=== PATIENT | female | born 1965 | race Caucasian/White ===

== ENCOUNTER 2020-10-06 21:49 | Observation (INO) | payer MEDICAID ==
[2020-10-06] MEDS ORDERED: Ondansetron 4 MG/2 ML SDV IVPUSH ONE (22:57)
[2020-10-06] MEDS ORDERED: Sodium Chloride 0.9% 1,000 ML IV ONE (22:58)
[2020-10-06] MEDS ORDERED: Ketorolac 30 MG/ML SDV IVPUSH ONE (23:20)
[2020-10-06] MEDS ORDERED: HYDROmorphone 1 MG/ML Syringe IVPUSH ONE (23:20)
[2020-10-06] MEDS ORDERED: Metoprolol Tartrate 5 MG in Sodium Chloride 0.9% 50 ML IV ONE (23:22)
[2020-10-06] MEDS ORDERED: Pantoprazole 40 MG Vial IVPUSH ONE (23:24)
[2020-10-07] MEDS ORDERED: HYDROmorphone 1 MG/ML Syringe IVPUSH ONE ×2 (00:19→02:40)
[2020-10-07] MEDS ORDERED: Sodium Chloride 0.9% 1,000 ML IV ONE (01:07)
[2020-10-07 02:38] LABS: CORONAVIRUS COVID-19 NAA NEGATIVE (NEGATIVE)
[2020-10-07] MEDS ORDERED: Enoxaparin 40 MG/0.4 ML Syringe SUBCUT ONE (03:12)
[2020-10-07] MEDS ORDERED: Ondansetron 8 MG in Sodium Chloride 0.9% 50 ML IV PRN (03:19)
[2020-10-07] MEDS: Sodium Chloride 0.9% 1,000 ML IV SCH ×2 (04:03→18:48)
[2020-10-07] MEDS: HYDROmorphone 1 MG/ML Syringe IVPUSH PRN ×3 (04:04→18:58)
[2020-10-07] MEDS ORDERED: Ondansetron 4 MG/2 ML SDV IVPUSH ONE (07:58)
[2020-10-07] MEDS: Enoxaparin 40 MG/0.4 ML Syringe SUBCUT SCH (08:01)
--- NOTE | 2020-10-07 09:11 | CT ---
CT abdomen and pelvis Technique: Multiple axial sections were obtained from above the dome of the diaphragm inferiorly through the pubic symphysis. Intravenous contrast was utilized. No oral contrast has been given. Delayed images were obtained to the bladder. Reconstructed coronal and sagittal images were obtained. Comparison: No prior abdominal imaging is available. Findings: Visualized lung bases show nothing acute. Gallbladder shows a small hiatal hernia. Liver shows low density most likely representing diffuse fatty infiltration. Surgical clips are seen from prior cholecystectomy. Spleen size is normal. Adrenal glands show no nodule. Pancreas shows no discrete abnormality. Abdominal aorta shows no aneurysm. No retroperitoneal adenopathy or mesenteric abnormalities are seen. Kidneys show symmetric contrast enhancement with no hydronephrosis or mass. Appendix is seen which is normal. No pelvic mass or adenopathy is seen. Scattered diverticuli are seen within the sigmoid and descending colon with no findings of diverticulitis. Small nodule is noted within the left breast measuring approximately 1.0 cm. This does not appear to be completely cystic. Delayed images show a small amount of contrast within the ureters as well as bladder. Bone window settings were reviewed which show severe disc space narrowing at L5-S1 with vacuum phenomena. Degenerative apophyseal change is also seen at L5-S1. Lesser degenerative change is seen within other portions of the spine. Impression: 1. Small 1.0 cm nodule within the lateral left breast. This was not described on preliminary report by [facility] and lateral left breast ultrasound is recommended. 2. Other findings as noted above believed to be chronic nonacute. Diagnostic code #3 I mostly agree with preliminary report from [facility] (please see above), finalized on 10/07/20, 2:27 AM CDT
[2020-10-07 10:09] LABS: HEMOGLOBIN A1C 7.6 %
--- NOTE | 2020-10-07 10:14 | MR ---
MRI abdomen Technique: Various sequences were obtained without IV contrast. Study was obtained in both axial and coronal planes. Comparison: Prior CT abdomen and pelvis study performed earlier on the same date. Findings: CHD measures about 1.3 cm and CBD measures about 1.0 cm. Ducts are seen to their exit into the duodenum. No filling defects are seen to indicate retained stones. Prior cholecystectomy is seen which is likely the cause of the biliary duct dilatation. On the cholangiogram images there is a cystic area being seen close to the CHD which represents fluid within the duodenum. Liver contains no focal abnormality. Spleen size is normal. Kidneys appear within normal limits. Adrenal glands show no abnormality. There is a small cyst being seen within the tail of the pancreas which measures about 8 mm. Pancreas is otherwise within normal limits. Abdominal aorta shows no aneurysm. No retroperitoneal adenopathy is seen. No mesenteric abnormalities are appreciated. Impression: 1. CHD and CBD are mildly dilated most likely residual from prior cholecystectomy. No filling defects are seen to indicate retained stone. 2. Small 8 mm cyst is seen within the tail of the pancreas. Given the patient's age, this finding is most likely benign although recommend limited T2 haste axial sequence in 6 months to confirm stability. 3. No additional abnormality is identified on MRI study of the abdomen. Diagnostic code #3
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
[2020-10-07] MEDS ORDERED: Promethazine 12.5 MG in Sodium Chloride 0.9% 50 ML IV ONE (11:35)
[2020-10-07] MEDS ORDERED: Insulin Lispro 100 UNIT/ML 10 ML Vial SUBCUT SCH (13:00)
--- NOTE | 2020-10-07 13:49 | PCM.PREANE ---
Preanesthetic Assessment - Procedure Proposed Procedure: diag egd - Anesthesia/Transfusion/Family Hx Anesthesia History: Prior Anesthesia Reaction Type of Anesthesia Reaction: Other (see below) (heart flutter- low on iron) Other Type of Anesthesia Reaction Comment: heart flutter Family History of Anesthesia Reaction: No Transfusion History: No Prior Transfusion(s) - Review of Systems General: Weakness (muscles- fibromyalgi) Pulmonary: No Symptoms, Cough (after walks a while) Cardiovascular: Dyspnea on Exertion Gastrointestinal: Abdominal Pain (48 hours), Diarrhea, Nausea, Vomiting Neurological: Headache (migraines), Weakness Other: Reports: Diabetes, Liver Problems (fatty), Neck Pain, Depression, Anxiety - Physical Assessment NPO Status Date: 10/06/20 NPO Status Time: 18:00 Vital Signs: Last Vital Signs Temp 98.2 F 10/07/20 08:00 Pulse 103 H 10/07/20 08:00 Resp 14 10/07/20 08:00 BP 126/93 H 10/07/20 08:00 Pulse Ox 92 L 10/07/20 08:00 Height: 5 ft 6 in Weight: 91.58 kg ASA Class: 2E Mental Status: Alert & Oriented x3 Airway Class: Mallampati = 1 Dentition: Reports: Edentulous Thyro-Mental Finger Breadths: 3 Mouth Opening Finger Breadths: 3 ROM/Head Extension: Full Lungs: Clear to Auscultation, Normal Respiratory Effort Cardiovascular: Regular Rate, Regular Rhythm - Lab Values: Laboratory Last Values WBC 7.03 K/mm3 (3.98-10.04) 10/07/20 06:15 RBC 4.15 M/mm3 (3.98-5.22) 10/07/20 06:15 Hgb 12.6 gm/dl (11.2-15.7) D 10/07/20 06:15 Hct 38.5 % (34.1-44.9) 10/07/20 06:15 MCV 92.8 fl (79.4-94.8) 10/07/20 06:15 MCH 30.4 pg (25.6-32.2) 10/07/20 06:15 MCHC 32.7 g/dl (32.2-35.5) 10/07/20 06:15 RDW Std Deviation 44.2 fL (36.4-46.3) 10/07/20 06:15 Plt Count 388 K/mm3 (182-369) H D 10/07/20 06:15 MPV 9.3 fl (9.4-12.3) L 10/07/20 06:15 Neut % (Auto) 53.1 % (34.0-71.1) 10/07/20 06:15 Lymph % (Auto) 35.8 % (19.3-51.7) 10/07/20 06:15 [place] % (Auto) 9.2 % (4.7-12.5) 10/07/20 06:15 Eos % (Auto) 1.0 (0.7-5.8) 10/07/20 06:15 Baso % (Auto) 0.6 % (0.1-1.2) 10/07/20 06:15 Neut # (Auto) 3.73 K/mm3 (1.56-6.13) 10/07/20 06:15 Lymph # (Auto) 2.52 K/mm3 (1.18-3.74) 10/07/20 06:15 [place] # (Auto) 0.65 K/mm3 (0.24-0.36) H 10/07/20 06:15 Eos # (Auto) 0.07 K/mm3 (0.04-0.36) 10/07/20 06:15 Baso # (Auto) 0.04 K/mm3 (0.01-0.08) 10/07/20 06:15 Manual Slide Review Abnormal smear 10/06/20 22:05 Sodium 145 mEq/L (136-145) 10/07/20 06:15 Potassium 4.2 mEq/L (3.5-5.1) 10/07/20 06:15 Chloride 109 mEq/L (98-107) H 10/07/20 06:15 Carbon Dioxide 28 mEq/L (21-32) 10/07/20 06:15 Anion Gap 12.2 (5-15) 10/07/20 06:15 BUN 12 mg/dL (7-18) 10/07/20 06:15 Creatinine 0.9 mg/dL (0.55-1.02) 10/07/20 06:15 Est Cr Clr Drug Dosing 66.12 mL/min 10/07/20 06:15 Estimated GFR (MDRD) > 60 mL/min (>60) 10/07/20 06:15 BUN/Creatinine Ratio 13.3 (14-18) L 10/07/20 06:15 Glucose 177 mg/dL (70-99) H 10/07/20 06:15 POC Glucose 170 mg/dL (70-99) H 10/07/20 11:21 Hemoglobin A1c 7.6 % (-5.6) H 10/07/20 09:10 Lactic Acid 1.8 mmol/L (0.4-2.0) 10/07/20 02:30 Calcium 8.7 mg/dL (8.5-10.1) 10/07/20 06:15 Total Bilirubin 0.5 mg/dL (0.2-1.0) 10/07/20 06:15 AST 46 U/L (15-37) H 10/07/20 06:15 ALT 78 U/L (14-59) H 10/07/20 06:15 Alkaline Phosphatase 70 U/L (46-116) 10/07/20 06:15 C-Reactive Protein 0.6 mg/dL (<1.0) 10/07/20 06:15 Total Protein 6.6 g/dl (6.4-8.2) 10/07/20 06:15 Albumin 3.4 g/dl (3.4-5.0) 10/07/20 06:15 Globulin 3.2 gm/dL 10/07/20 06:15 Albumin/Globulin Ratio 1.1 (1-2) 10/07/20 06:15 Amylase 16 U/L (25-115) L 10/07/20 06:15 Lipase 61 U/L (73-393) L 10/07/20 06:15 Urine Color Yellow (Yellow) 10/07/20 01:00 Urine Appearance Clear (Clear) 10/07/20 01:00 Urine pH 5.5 (5.0-8.0) 10/07/20 01:00 Ur Specific [place] > or = 1.030 (1.005-1.030) 10/07/20 01:00 Urine Protein 2+ (Negative) H 10/07/20 01:00 Urine Glucose (UA) 2+ (Negative) H 10/07/20 01:00 Urine Ketones 2+ (Negative) H 10/07/20 01:00 Urine Occult Blood Negative (Negative) 10/07/20 01:00 Urine Nitrite Negative (Negative) 10/07/20 01:00 Urine Bilirubin 1+ (Negative) H 10/07/20 01:00 Urine Urobilinogen 0.2 (0.2-1.0) 10/07/20 01:00 Ur Leukocyte Esterase Negative (Negative) 10/07/20 01:00 Ketones 0.05 mM (0.0-0.3) 10/07/20 09:08 Influenza Type A RNA Negative (NEGATIVE) 10/07/20 01:11 Influenza Type B RNA Negative (NEGATIVE) 10/07/20 01:11 SARS-CoV-2 RNA (BRETT) Negative (NEGATIVE) 10/07/20 01:11 - Allergies Allergies/Adverse Reactions: Allergies Allergy/AdvReac Type Severity Reaction Status Date / Time ciprofloxacin [From Cipro] Allergy Severe Other Verified 10/06/20 22:09 gluten Allergy Severe Blisters Verified 10/07/20 03:27 latex Allergy Severe Blisters Verified 10/06/20 22:09 miconazole [From Monistat 7] Allergy Severe Rash Verified 10/06/20 22:09 oats Allergy Intermediate Blisters Verified 10/07/20 03:27 - Blood Blood Available: No - Anesthesia Plan Beta Shahab: Metoprolol Med Last Dose Date: 10/05/20 - Acknowledgements Anesthesia Type Planned: MAC Pt an Appropriate Candidate for the Planned Anesthesia: Yes Alternatives and Risks of Anesthesia Discussed w Pt/Guardian: Yes Pt/Guardian Understands and Agrees with Anesthesia Plan: Yes PreAnesthesia Questionnaire HEENT History: Reports: Impaired Vision Cardiovascular History: Reports: Hypertension Other Respiratory History: pt states she did sleep apnea study and they never for sure stated that she had sleep apnea but states that her o2 does "drop a little when she sleeps" Gastrointestinal History: Reports: Celiac Disease, Diverticulosis, Fatty Liver, GERD, Irritable Bowel Syndrome, Other (See Below). Denies: Bowel Obstruction, GI Bleed, Pancreatitis Other Gastrointestinal History: spastic colon [employer] History: Reports: Musculoskeletal History: Reports: Back Pain, Chronic, Fibromyalgia, Osteoarthritis, Other (See Below) Other Musculoskeletal History: neuropathy in feet Neurological History: Reports: Migraines, Vertigo Psychiatric History: Reports: Depression, Mood Swings Endocrine/Metabolic History: Reports: Diabetes, Type II, Obesity/BMI 30+ Hematologic History: Reports: None - Infectious Disease History Infectious Disease History: Reports: Chicken Pox, Measles, Mumps, Shingles - Past Surgical History HEENT Surgical History: Reports: Oral Surgery Other HEENT Surgeries/Procedures: upper/lower dentures Cardiovascular Surgical History: Reports: None GI Surgical History: Reports: Cholecystectomy Female Surgical History: Reports: Tubal Ligation Endocrine Surgical History: Reports: None Musculoskeletal Surgical History: Reports: None - SUBSTANCE USE Tobacco Use Status *Q: Never Tobacco User Tobacco Use Within Last Twelve Months: No Second Hand Smoke Exposure: Yes Days Per Week of Alcohol Use: 0 Recreational Drug Use History: No - HOME MEDS Home Medications: Home Meds DULoxetine [Cymbalta] 60 mg PO BID 10/06/20 [History] Dicyclomine [Bentyl] 20 mg PO QIDACANDBED PRN 10/06/20 [History] Metoprolol Succinate 25 mg PO BEDTIME 10/06/20 [History] Ondansetron [Zofran] 4 mg PO Q4H PRN 10/06/20 [History] buPROPion [buPROPion XL] 150 mg PO BID 10/06/20 [History] metFORMIN [Glucophage] 500 mg PO BIDMEALS 10/06/20 [History] Acetaminophen 1,000 mg PO QID PRN 10/07/20 [History] diphenhydrAMINE HCL [Diphenhydramine HCl] 25 mg PO DAILY PRN 10/07/20 [History] traMADol HCl [Tramadol HCl] 50 mg PO BID PRN 10/07/20 [History] - CURRENT (IN HOUSE) MEDS Current Meds: Current Medications Enoxaparin Sodium (Enoxaparin 40 Mg/0.4 Ml Syringe) 40 mg SUBCUT DAILY [facility] Last Admin: 10/07/20 08:01 Dose: 40 mg Documented by: Hydromorphone HCl (Hydromorphone 1 Mg/Ml Syringe) 1 mg IVPUSH Q1H PRN PRN Reason: Pain Last Admin: 10/07/20 07:48 Dose: 1 mg Documented by: Sodium Chloride (Normal Saline) 1,000 mls @ 75 mls/hr IV ASDIRECTED UNIUQE Last Admin: 10/07/20 04:03 Dose: 75 mls/hr Documented by: Ondansetron HCl 8 mg/ Sodium (Chloride) 54 mls @ 100 mls/hr IV Q8HR PRN PRN Reason: Nausea/Vomiting Promethazine HCl 12.5 mg/ (Sodium Chloride) 50.5 mls @ 100 mls/hr IV Q12H PRN PRN Reason: Nausea/Vomiting Insulin Glargine (Insulin Glarg,Human.Rec.Analog 100 Unit/Ml) 15 unit SUBCUT QPM UNIQUE Insulin Human Lispro (Insulin Lispro 100 Unit/Ml 10 Ml Vial) 0 unit SUBCUT TID UNIQUE; Protocol Discontinued Medications Hydromorphone HCl (Hydromorphone 1 Mg/Ml Syringe) 1 mg IVPUSH ONETIME ONE Stop: 10/06/20 23:21 Last Admin: 10/06/20 23:31 Dose: 1 mg Documented by: Hydromorphone HCl (Hydromorphone 1 Mg/Ml Syringe) 1 mg IVPUSH ONETIME ONE Stop: 10/07/20 00:20 Last Admin: 10/07/20 00:23 Dose: 1 mg Documented by: Hydromorphone HCl (Hydromorphone 1 Mg/Ml Syringe) 1 mg IVPUSH ONETIME ONE Stop: 10/07/20 02:41 Last Admin: 10/07/20 02:45 Dose: 1 mg Documented by: Sodium Chloride (Normal Saline) 1,000 mls @ 999 mls/hr IV ONETIME ONE Stop: 10/06/20 23:58 Last Admin: 10/06/20 23:04 Dose: 999 mls/hr Documented by: Metoprolol Tartrate 5 mg/ (Sodium Chloride) 55 mls @ 100 mls/hr IV ONETIME ONE Stop: 10/06/20 23:54 Last Admin: 10/06/20 23:33 Dose: 100 mls/hr Documented by: Sodium Chloride (Normal Saline) 1,000 mls @ 1,000 mls/hr IV ONETIME ONE Stop: 10/07/20 02:06 Last Infusion: 10/07/20 01:18 Dose: 500 mls/hr Documented by: Promethazine HCl 12.5 mg/ (Sodium Chloride) 50.5 mls @ 100 mls/hr IV ONETIME ONE Stop: 10/07/20 12:05 Last Admin: 10/07/20 11:49 Dose: 100 mls/hr Documented by: Insulin Human Lispro (Insulin Lispro 100 Unit/Ml 10 Ml Vial) 0 unit SUBCUT [facility]; Protocol Last Admin: 10/07/20 13:04 Dose: 1 unit Documented by: Ketorolac Tromethamine (Ketorolac 30 Mg/Ml Sdv) 30 mg IVPUSH ONETIME ONE Stop: 10/06/20 23:21 Last Admin: 10/06/20 23:30 Dose: 30 mg Documented by: Ondansetron HCl (Ondansetron 4 Mg/2 Ml Sdv) 4 mg IVPUSH ONETIME ONE Stop: 10/06/20 22:58 Last Admin: 10/06/20 23:04 Dose: 4 mg Documented by: Ondansetron HCl (Ondansetron 4 Mg/2 Ml Sdv) 4 mg IVPUSH ONETIME ONE Stop: 10/07/20 07:59 Last Admin: 10/07/20 08:06 Dose: 4 mg Documented by: Pantoprazole Sodium (Pantoprazole 40 Mg Vial) 40 mg IVPUSH ONETIME ONE Stop: 10/06/20 23:25 Last Admin: 10/06/20 23:39 Dose: 40 mg Documented by:
[2020-10-07] MEDS ORDERED: Lidocaine 1% 4 ML ONE (14:02)
[2020-10-07] MEDS ORDERED: Lactated Ringers 1,000 ML ONE (14:02)
[2020-10-07] MEDS ORDERED: fentaNYL 100 MCG/2 ML SDV ONE (14:02)
[2020-10-07] MEDS ORDERED: Propofol 200 MG/20 ML SDV ONE (14:02)
--- NOTE | 2020-10-07 14:23 | PCM.PRNOTE ---
- Free Text/Narrative Note: Date: 10/07/2020 Procedure: diagnostic esophagogastroduodenoscopy Indication: severe epigastric pain with vomiting, history of celiac disease and uncontrolled diabetes Endoscopist: Amol Hills MD Findings: Scant food material in oropharynx and along the length of the esophagus. Bilious fluid within the stomach without undigested food to suggest gastroparesis. No visible evidence of ulceration or inflammation within the duodenum or stomach. No hiatal hernia appreciated. Detailed Report: The patient was taken to the endoscopy suite and placed in left lateral decubitus position. Timeout was performed and monitored anesthesia care was initiated. A bite-block was placed. The endoscope was inserted into the mouth and advanced to the duodenum with ease. The duodenal mucosa appeared grossly normal. Biopsies were taken from the midportion of the duodenum and from the duodenal bulb with cold forceps. The scope was withdrawn into the stomach. The pylorus appeared normal. Mucosal samples of the gastric antrum were obtained with cold forceps. There was a moderate amount of sykes yellow bilious liquid within the stomach which was suctioned. On retroflexion, no hiatal hernia was appreciated. The Z-line appeared grossly normal. A biopsy of distal esophageal mucosa was obtained with cold forceps. Air was suctioned from the stomach and esophagus as the scope was withdrawn. The patient tolerated the procedure well.
--- NOTE | 2020-10-07 14:41 | PCM48HPAN ---
Post Anesthesia Note - EVALUATION WITHIN 48HRS OF ANESTHETIC Vital Signs in Normal Range: Yes Patient Participated in Evaluation: Yes Respiratory Function Stable: Yes Airway Patent: Yes Cardiovascular Function Stable: Yes Hydration Status Stable: Yes Pain Control Satisfactory: Yes Nausea and Vomiting Control Satisfactory: Yes Mental Status Recovered: Yes Vital Signs: Last Vital Signs Temp 98.2 F 10/07/20 14:28 Pulse 102 H 10/07/20 14:28 Resp 20 10/07/20 14:28 BP 104/53 L 10/07/20 14:28 Pulse Ox 94 L 10/07/20 14:28
[2020-10-07] MEDS: Insulin Lispro 100 UNIT/ML 10 ML Vial SUBCUT SCH ×2 (15:22→20:52)
[2020-10-07] MEDS ORDERED: Insulin Glarg,Human.Rec.Analog 100 Unit/ML SUBCUT SCH (18:00)
[2020-10-07] MEDS ORDERED: traMADol 50 MG Tab PO PRN (20:50)
[2020-10-07] MEDS ORDERED: Acetaminophen 325 MG Tab PO PRN (20:50)
[2020-10-07] MEDS ORDERED: LORazepam 2 MG/ML SDV IVPUSH PRN (20:51)
[2020-10-07] MEDS ORDERED: Promethazine 12.5 MG in Sodium Chloride 0.9% 50 ML IV PRN (23:00)
[2020-10-08] MEDS: Sodium Chloride 0.9% 1,000 ML IV SCH (07:38)
[2020-10-08] MEDS: Insulin Lispro 100 UNIT/ML 10 ML Vial SUBCUT SCH ×2 (09:39→18:38)
[2020-10-08] MEDS: Enoxaparin 40 MG/0.4 ML Syringe SUBCUT SCH (09:39)
--- NOTE | 2020-10-08 11:54 | PCM.DCSUM1 ---
Discharge Summary - Hospital Course Free Text/Narrative:: Patient admitted 10/07/2020 for abdominal pain with nausea and vomiting Also with elevated lactic acid. 1. Abdominal pain with nausea and vomiting. Suspect due to untreated diabetic gastroparesis. Patient symptoms have diminished with IV motility agents (Reglan). This was substituted for p.o. upon discharge. Patient instructed to have frequent small meals rather than 2-3 large meals per day. Status post EGD which was negative for any acute pathology. No evidence of bleeding. No evidence of gastritis. Full work-up in the emergency department was negative for any ominous pathology. Imaging all negative. Patient set up for gastric emptying study on an outpatient basis. Results to PCP. 2. Lactic acidosis. Secondary to volume depletion. Received supplemental IV fluid hydration up until the time of discharge. Lactic acidosis resolved entirely. HPI Initial Comments: Initial Comments - Free Text/Narative: 54 year old female with abd pain and vomiting starting about 24 hours ago. has multiple vomiting and dry heaves all day and unable to eat with severe epigastric pain rated at 9 -10. emisis undigested food and black material. no blood noted. long standing hx of ibs and gastric bloating and celiac disease presented to e.r. and unable to get pain under control even with i.v. narcotics x 3 . long standing g.i issues and many dx. prev hx of ibs and fibromyalgia . prev. hx of gastroparesis like symptoms of non digested food and throwing up going back 25 years. hx of celiac disease dx by g.i., follows gluten free diet. no recent evaluation . hx of chronic pain and opiod use. hx of chronic pain .uses tramidol most days but skips for periods of several. days if doing well hx of prev. cholecystectomy 10 years ago. hx of no known pancreatitis, no hx of etoh abuse,no hx of hepatitis or illicit drug abuse. no hx of g.i bleeding but hx of low iron requiring iron infusions. hx of anxiety and depression/anxiety hx of sleep problems . Onset of Symptoms: Reports: Gradual Duration of Symptoms: Reports: Day(s): (1) Location: Reports: Abdomen Quality: Reports: Ache, Sharp Improves with: Reports: None, Immobilization Worsens with: Reports: Heat Therapy, Medication, Rest Associated Symptoms: Reports: Nausea/Vomiting, Other (vertigo) Upper Abdomen Pain Score (Numeric/FACES): 8 - Related Data Allergies/Adverse Reactions: Allergies Allergy/AdvReac Type Severity Reaction Status Date / Time ciprofloxacin [From Cipro] Allergy Severe Other Verified 10/06/20 22:09 gluten Allergy Severe Blisters Verified 10/07/20 03:27 latex Allergy Severe Blisters Verified 10/06/20 22:09 miconazole [From Monistat 7] Allergy Severe Rash Verified 10/06/20 22:09 oats Allergy Intermediate Blisters Verified 10/07/20 03:27 Home Medications: Home Meds DULoxetine [Cymbalta] 60 mg PO BID 10/06/20 [History] Dicyclomine [Bentyl] 20 mg PO QIDACANDBED PRN 10/06/20 [History] Metoprolol Succinate 25 mg PO BEDTIME 10/06/20 [History] Ondansetron [Zofran] 4 mg PO Q4H PRN 10/06/20 [History] buPROPion [buPROPion XL] 150 mg PO BID 10/06/20 [History] metFORMIN [Glucophage] 500 mg PO BIDMEALS 10/06/20 [History] Acetaminophen 1,000 mg PO QID PRN 10/07/20 [History] diphenhydrAMINE HCL [Diphenhydramine HCl] 25 mg PO DAILY PRN 10/07/20 [History] traMADol HCl [Tramadol HCl] 50 mg PO BID PRN 10/07/20 [History] Past Medical History HEENT History: Reports: Impaired Vision Cardiovascular History: Reports: Hypertension Other Respiratory History: pt states she did sleep apnea study and they never for sure stated that she had sleep apnea but states that her o2 does "drop a little when she sleeps" Gastrointestinal History: Reports: Celiac Disease, Diverticulosis, Fatty Liver, GERD, Irritable Bowel Syndrome, Other (See Below). 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: Musculoskeletal History: Reports: Back Pain, Chronic, Fibromyalgia, Osteoarthritis, Other (See Below) Other Musculoskeletal History: neuropathy in feet Neurological History: Reports: Migraines, Vertigo Psychiatric History: Reports: Depression, Mood Swings Endocrine/Metabolic History: Reports: Diabetes, Type II, Obesity/BMI 30+ Hematologic History: Reports: None - Infectious Disease History Infectious Disease History: Reports: Chicken Pox, Measles, Mumps, Shingles - Past Surgical History Other HEENT Surgeries/Procedures: upper/lower dentures Cardiovascular Surgical History: Reports: None GI Surgical History: Reports: Cholecystectomy Female Surgical History: Reports: Tubal Ligation Endocrine Surgical History: Reports: None Musculoskeletal Surgical History: Reports: None Social & Family History - Tobacco Use Tobacco Use Status *Q: Never Tobacco User Second Hand Smoke Exposure: Yes - Caffeine Use Caffeine Use: Reports: Soda - Recreational Drug Use Recreational Drug Use: No H&P Review of Systems - Review of Systems: Review Of Systems: See Below General: Reports: No Symptoms HEENT: Reports: Other (vertigo positional ) Pulmonary: Reports: No Symptoms Cardiovascular: Reports: No Symptoms Gastrointestinal: Reports: No Symptoms, Abdominal Pain, Diarrhea, Distension, Flatus, Melena, Nausea, Stool Incontinence, Vomiting Genitourinary: Reports: No Symptoms Musculoskeletal: Reports: Neck Pain, Shoulder Pain, Back Pain, Muscle Pain, Muscle Stiffness Skin: Reports: No Symptoms Psychiatric: Reports: Depression, Mood Lability, Anxiety Neurological: Reports: Dizziness, Headache, Tremors Hematologic/Lymphatic: Reports: No Symptoms Immunologic: Reports: No Symptoms Exam - Exam Exam: See Below - Vital Signs Vital Signs: Last Vital Signs Temp 36.8 C 10/07/20 08:00 Pulse 103 H 10/07/20 08:00 Resp 14 10/07/20 08:00 BP 126/93 H 10/07/20 08:00 Pulse Ox 92 L 10/07/20 08:00 Weight: 91.58 kg - Exam General: Alert, Oriented, 4 HEENT: PERRLA, Hearing Intact, Mucosa Moist & [place], Nares Patent, Normal Nasal Septum, Posterior Pharynx Clear, Conjunctiva Clear, EOMI, EACs Clear, TMs Clear Neck: Supple, Trachea Midline, 2 Lungs: Clear to Auscultation, Normal Respiratory Effort Cardiovascular: Regular Rate, Regular Rhythm GI/Abdominal Exam: Normal Bowel Sounds, Soft, No Organomegaly, No Distention, No Abnormal Bruit, No Mass, Pelvis Stable. No: Non-Tender (Female) Exam: Deferred. No: Normal External Exam, Normal Speculum Exam, Normal Bimanual Exam Rectal (Female) Exam: Deferred. No: Normal Exam, Normal Rectal Tone Back Exam: Normal Inspection, Full Range of Motion, NT Extremities: Normal Inspection, Normal Range of Motion, Non-Tender, No Pedal Edema, Normal Capillary Refill Skin: Warm, Dry, Intact Neurological: Cranial Nerves Intact, Reflexes Equal Bilateral Neuro Extensive - Mental Status: Alert, Oriented x3, Normal Mood/Affect, Normal Cognition Neuro Extensive - Motor, Sensory, Reflexes: CN II-XII Intact, Normal Gait, Normal Reflexes Psychiatric: Alert, Normal Affect, Normal Mood - Discharge Data Discharge Date: 10/08/20 Discharge Disposition: Home, Self-Care 01 Condition: Good - Referral to Home Health Primary Care Physician: Michael Easton MD - Patient Summary/Data Consults: Consultations 10/07/20 10:25 PT Evaluation and Treatment [CONS] Routine 10/07/20 12:14 Consult to Physician [CONS] Routine 10/07/20 12:16 Consult to Physician [CONS] Routine 10/07/20 16:46 PT Evaluation and Treatment [CONS] Routine Hospital Course: See above - Patient Instructions Diet: Diabetic Diet Activity: As Tolerated Other/Special Instructions: Activity and diet are as tolerated. Continue taking medications as prescribed. Follow-up with PCP within 1 to 2 weeks. If you experience any signs or symptoms that warranted this admission please do not hesitate to call your primary care physician or present to an emergency department for an immediate evaluation. - Discharge Plan *PRESCRIPTION DRUG MONITORING PROGRAM REVIEWED*: Not Applicable *COPY OF PRESCRIPTION DRUG MONITORING REPORT IN PATIENT ANUSHA: Not Applicable Prescriptions/Med Rec: Metoclopramide [Reglan] 5 mg PO QIDACANDBED #120 tab Home Medications: Home Meds DULoxetine [Cymbalta] 60 mg PO BID 10/06/20 [History] Dicyclomine [Bentyl] 20 mg PO QIDACANDBED PRN 10/06/20 [History] Metoprolol Succinate 25 mg PO BEDTIME 10/06/20 [History] Ondansetron [Zofran] 4 mg PO Q4H PRN 10/06/20 [History] buPROPion [buPROPion XL] 150 mg PO BID 10/06/20 [History] metFORMIN [Glucophage] 500 mg PO BIDMEALS 10/06/20 [History] Acetaminophen 1,000 mg PO QID PRN 10/07/20 [History] diphenhydrAMINE HCL [Diphenhydramine HCl] 25 mg PO DAILY PRN 10/07/20 [History] traMADol HCl [Tramadol HCl] 50 mg PO BID PRN 10/07/20 [History] Metoclopramide [Reglan] 5 mg PO QIDACANDBED #120 tab 10/08/20 [Rx] Oxygen Therapy Mode: Room Air Patient Handouts: Type 2 Diabetes Mellitus, Diagnosis, Adult, Abdominal Pain, Adult, [id number] Forms: ED Department Discharge Referrals: Michael Easton MD [Primary Care Provider] - 10/21/20 2:20 pm (this appt. is in [facility] Please arrive at 2:00 for check in ) - Discharge Summary/Plan Comment DC Time >30 min.: No - General Info Date of Service: 10/08/20 Admission Dx/Problem (Free Text: Admission Diagnosis/Problem Admission Diagnosis/Problem Abdominal pain/nausea and vomiting Subjective Update: Seen and examined at bedside. Patient complains of generalized muscle and joint aches that she takes her Cymbalta for. Is requesting to have her Cymbalta reinstated. Denies any abdominal pain. Tolerated diet this morning without any adverse effect and is wishing to go home. - Patient Data Vitals - Most Recent: Last Vital Signs Temp 97.9 F 10/08/20 08:15 Pulse 96 10/08/20 08:15 Resp 14 10/08/20 08:15 BP 128/78 10/08/20 08:15 Pulse Ox 97 10/08/20 08:15 Weight - Most Recent: 202 lb 12.8 oz I&O - Last 24 hours: Intake & Output 10/07/20 10/08/20 10/08/20 22:59 06:59 14:59 Intake Total 871 1012 Output Total 400 200 Balance 471 812 Lab Results - Last 24 hrs: Laboratory Results - last 24 hr 10/07/20 10/07/20 10/07/20 Range/Units 17:15 20:31 22:30 POC Glucose 145 H 136 H (70-99) mg/dL Lactic Acid (0.4-2.0) mmol/L Magnesium (1.8-2.4) mg/dL Vitamin D 25-Hydroxy (30.0-100.0) ng/ml Urine Color Yellow (Yellow) Urine Appearance Slt cloudy H (Clear) Urine pH 5.5 (5.0-8.0) Ur Specific [place] > or = 1.030 (1.005-1.030) Urine Protein Trace H (Negative) Urine Glucose (UA) Negative (Negative) Urine Ketones Negative (Negative) Urine Occult Blood Negative (Negative) Urine Nitrite Negative (Negative) Urine Bilirubin 1+ H (Negative) Urine Urobilinogen 0.2 (0.2-1.0) Ur Leukocyte Esterase 1+ H (Negative) Urine RBC 5-10 H (0-5) /hpf Urine WBC 20-30 H (0-5) /hpf Urine WBC Clumps Few (NOT SEEN) /hpf Ur Squamous Epith Cells 10-20 H (0-5) /hpf Ur Transition Epith Cell 0-5 (0-5) Urine Bacteria Many H (FEW) /hpf Urine Mucus Many H (FEW) /hpf 10/08/20 10/08/20 10/08/20 Range/Units 04:50 04:50 04:50 POC Glucose (70-99) mg/dL Lactic Acid 0.6 (0.4-2.0) mmol/L Magnesium 1.7 L (1.8-2.4) mg/dL Vitamin D 25-Hydroxy 18.8 L (30.0-100.0) ng/ml Urine Color (Yellow) Urine Appearance (Clear) Urine pH (5.0-8.0) Ur Specific [place] (1.005-1.030) Urine Protein (Negative) Urine Glucose (UA) (Negative) Urine Ketones (Negative) Urine Occult Blood (Negative) Urine Nitrite (Negative) Urine Bilirubin (Negative) Urine Urobilinogen (0.2-1.0) Ur Leukocyte Esterase (Negative) Urine RBC (0-5) /hpf Urine WBC (0-5) /hpf Urine WBC Clumps (NOT SEEN) /hpf Ur Squamous Epith Cells (0-5) /hpf Ur Transition Epith Cell (0-5) Urine Bacteria (FEW) /hpf Urine Mucus (FEW) /hpf 10/08/20 Range/Units 08:14 POC Glucose 159 H (70-99) mg/dL Lactic Acid (0.4-2.0) mmol/L Magnesium (1.8-2.4) mg/dL Vitamin D 25-Hydroxy (30.0-100.0) ng/ml Urine Color (Yellow) Urine Appearance (Clear) Urine pH (5.0-8.0) Ur Specific [place] (1.005-1.030) Urine Protein (Negative) Urine Glucose (UA) (Negative) Urine Ketones (Negative) Urine Occult Blood (Negative) Urine Nitrite (Negative) Urine Bilirubin (Negative) Urine Urobilinogen (0.2-1.0) Ur Leukocyte Esterase (Negative) Urine RBC (0-5) /hpf Urine WBC (0-5) /hpf Urine WBC Clumps (NOT SEEN) /hpf Ur Squamous Epith Cells (0-5) /hpf Ur Transition Epith Cell (0-5) Urine Bacteria (FEW) /hpf Urine Mucus (FEW) /hpf Med Orders - Current: Current Medications Acetaminophen (Acetaminophen 325 Mg Tab) 650 mg PO Q6H PRN PRN Reason: Pain Enoxaparin Sodium (Enoxaparin 40 Mg/0.4 Ml Syringe) 40 mg SUBCUT DAILY [facility] Last Admin: 10/08/20 09:39 Dose: 40 mg Documented by: Sodium Chloride (Normal Saline) 1,000 mls @ 75 mls/hr IV ASDIRECTED [facility] Last Admin: 10/08/20 07:38 Dose: 75 mls/hr Documented by: Ondansetron HCl 8 mg/ Sodium (Chloride) 54 mls @ 100 mls/hr IV Q8HR PRN PRN Reason: Nausea/Vomiting Promethazine HCl 12.5 mg/ (Sodium Chloride) 50.5 mls @ 100 mls/hr IV Q12H PRN PRN Reason: Nausea/Vomiting Insulin Glargine (Insulin Glarg,Human.Rec.Analog 100 Unit/Ml) 15 unit SUBCUT QPM [facility] Last Admin: 10/07/20 18:48 Dose: 15 units Documented by: Insulin Human Lispro (Insulin Lispro 100 Unit/Ml 10 Ml Vial) 0 unit SUBCUT TID [facility]; Protocol Last Admin: 10/08/20 09:39 Dose: 1 unit Documented by: Lorazepam (Lorazepam 2 Mg/Ml Sdv) 0.5 mg IVPUSH Q6H PRN PRN Reason: Anxiety Tramadol HCl (Tramadol 50 Mg Tab) 50 mg PO Q6H PRN PRN Reason: Pain Discontinued Medications Fentanyl (Fentanyl 100 Mcg/2 Ml Sdv) Confirm Administered Dose 100 mcg .ROUTE .STK-MED ONE Stop: 10/07/20 14:03 Hydromorphone HCl (Hydromorphone 1 Mg/Ml Syringe) 1 mg IVPUSH ONETIME ONE Stop: 10/06/20 23:21 Last Admin: 10/06/20 23:31 Dose: 1 mg Documented by: Hydromorphone HCl (Hydromorphone 1 Mg/Ml Syringe) 1 mg IVPUSH ONETIME ONE Stop: 10/07/20 00:20 Last Admin: 10/07/20 00:23 Dose: 1 mg Documented by: Hydromorphone HCl (Hydromorphone 1 Mg/Ml Syringe) 1 mg IVPUSH ONETIME ONE Stop: 10/07/20 02:41 Last Admin: 10/07/20 02:45 Dose: 1 mg Documented by: Hydromorphone HCl (Hydromorphone 1 Mg/Ml Syringe) 1 mg IVPUSH Q1H PRN PRN Reason: Pain Last Admin: 10/07/20 18:58 Dose: 1 mg Documented by: Sodium Chloride (Normal Saline) 1,000 mls @ 999 mls/hr IV ONETIME ONE Stop: 10/06/20 23:58 Last Admin: 10/06/20 23:04 Dose: 999 mls/hr Documented by: Metoprolol Tartrate 5 mg/ (Sodium Chloride) 55 mls @ 100 mls/hr IV ONETIME ONE Stop: 10/06/20 23:54 Last Admin: 10/06/20 23:33 Dose: 100 mls/hr Documented by: Sodium Chloride (Normal Saline) 1,000 mls @ 1,000 mls/hr IV ONETIME ONE Stop: 10/07/20 02:06 Last Infusion: 10/07/20 01:18 Dose: 500 mls/hr Documented by: Promethazine HCl 12.5 mg/ (Sodium Chloride) 50.5 mls @ 100 mls/hr IV ONETIME ONE Stop: 10/07/20 12:05 Last Admin: 10/07/20 11:49 Dose: 100 mls/hr Documented by: Lactated Ringer's (Ringers, Lactated) Confirm Administered Dose 1,000 mls @ as directed .ROUTE .STK-MED ONE Stop: 10/07/20 14:03 Lidocaine HCl (Xylocaine-Mpf 1%) Confirm Administered Dose 4 mls @ as directed .ROUTE .STK-MED ONE Stop: 10/07/20 14:03 Insulin Human Lispro (Insulin Lispro 100 Unit/Ml 10 Ml Vial) 0 unit SUBCUT [facility]; Protocol Last Admin: 10/07/20 13:04 Dose: 1 unit Documented by: Ketorolac Tromethamine (Ketorolac 30 Mg/Ml Sdv) 30 mg IVPUSH ONETIME ONE Stop: 10/06/20 23:21 Last Admin: 10/06/20 23:30 Dose: 30 mg Documented by: Ondansetron HCl (Ondansetron 4 Mg/2 Ml Sdv) 4 mg IVPUSH ONETIME ONE Stop: 10/06/20 22:58 Last Admin: 10/06/20 23:04 Dose: 4 mg Documented by: Ondansetron HCl (Ondansetron 4 Mg/2 Ml Sdv) 4 mg IVPUSH ONETIME ONE Stop: 10/07/20 07:59 Last Admin: 10/07/20 08:06 Dose: 4 mg Documented by: Pantoprazole Sodium (Pantoprazole 40 Mg Vial) 40 mg IVPUSH ONETIME ONE Stop: 10/06/20 23:25 Last Admin: 10/06/20 23:39 Dose: 40 mg Documented by: Propofol (Propofol 200 Mg/20 Ml Sdv) Confirm Administered Dose 200 mg .ROUTE .STK-MED ONE Stop: 10/07/20 14:03 - Exam General: Reports: Alert, Cooperative, No Acute Distress Neck: Reports: Supple Lungs: Reports: Clear to Auscultation, Normal Respiratory Effort Cardiovascular: Reports: Regular Rate GI/Abdominal Exam: Normal Bowel Sounds, Soft, Non-Tender, No Distention Extremities: Normal Inspection, No Pedal Edema Skin: Reports: Warm, Dry, Intact Neurological: Reports: No New Focal Deficit Psy/Mental Status: Reports: Normal Affect, Normal Mood Discharge Operative/Procedures - Procedures Performed Operations/Procedure Comment: EGD. See report by Dr. Amol Hills.
--- NOTE | 2020-11-02 11:37 | PCM.SN.2 ---
- Free Text/Narrative Note: ekg report sinus rhythm without abnormalities. normal ekg. boh
--- NOTE | 2020-11-08 01:24 | EDM.PDOC ---
ED HPI GENERAL MEDICAL PROBLEM - General Chief Complaint: Gastrointestinal Problem Stated Complaint: NAUSEA Time Seen by Provider: 10/06/20 23:12 Source of Information: Reports: Patient, Provider History Limitations: Reports: No Limitations - History of Present Illness INITIAL COMMENTS - FREE TEXT/NARRATIVE: Patient is a 54-year-old female who is complaining of severe abdominal pain with vomiting for the last 24 hours and now having dry heaves. Patient states her pain is much worse with eating is complaining of pain that severe in the epigastric area. She does have a history of gastroparesis and irritable bowel syndrome along with gastric bloating and celiac disease. Patient also has a history of fibromyalgia with chronic pain and narcotic use for this. She has had a hysterectomy. She denies any hematemesis or any bloody or tarry stools. She denies having any diarrhea currently. She denies any dysuria or hematuria. Patient does feel she is dehydrated secondary to not being able to eat or drink for 24 hours. Onset: Gradual Duration: Day(s): (1) Location: Reports: Abdomen Quality: Reports: Ache, Sharp Improves with: Reports: None, Immobilization Worsens with: Reports: Heat Therapy, Medication, Rest Associated Symptoms: Reports: Nausea/Vomiting, Other (vertigo) Upper Abdomen Pain Score (Numeric/FACES): 8 - Related Data Allergies Allergy/AdvReac Type Severity Reaction Status Date / Time gluten Allergy Intermediate Blisters Verified 10/31/20 09:36 latex Allergy Intermediate Blisters Verified 10/31/20 09:36 miconazole [From Monistat 7] Allergy Intermediate Rash Verified 10/31/20 09:36 oats Allergy Intermediate Blisters Verified 10/31/20 09:36 ciprofloxacin [From Cipro] Allergy Unknown Other Verified 10/31/20 09:36 Home Meds: Home Meds DULoxetine [Cymbalta] 60 mg PO BID 10/06/20 [History] Dicyclomine [Bentyl] 20 mg PO QIDACANDBED PRN 10/06/20 [History] Metoprolol Succinate 25 mg PO BEDTIME 10/06/20 [History] Ondansetron [Zofran] 4 mg PO Q4H PRN 10/06/20 [History] buPROPion [buPROPion XL] 150 mg PO BID 10/06/20 [History] metFORMIN [Glucophage] 500 mg PO BIDMEALS 10/06/20 [History] Acetaminophen 1,000 mg PO QID PRN 10/07/20 [History] diphenhydrAMINE HCL [Diphenhydramine HCl] 25 mg PO DAILY PRN 10/07/20 [History] traMADol HCl [Tramadol HCl] 50 mg PO BID PRN 10/07/20 [History] Metoclopramide [Reglan] 5 mg PO QIDACANDBED #120 tab 10/08/20 [Rx] Hydrocodone/Acetaminophen [Hydrocodone-Acetamin 5-325 mg] 1 - 2 each PO Q6H PRN #15 tablet 10/31/20 [Rx] Ondansetron [Zofran ODT] 4 mg PO Q6H PRN #20 tab.dis 10/31/20 [Rx] Past Medical History HEENT History: Reports: Impaired Vision Cardiovascular History: Reports: Hypertension Other Respiratory History: pt states she did sleep apnea study and they never for sure stated that she had sleep apnea but states that her o2 does "drop a little when she sleeps" Gastrointestinal History: Reports: Celiac Disease, Diverticulosis, Fatty Liver, GERD, Irritable Bowel Syndrome, Other (See Below). Denies: Bowel Obstruction, GI Bleed, Pancreatitis Other Gastrointestinal History: spastic colon [employer] History: Reports: Musculoskeletal History: Reports: Back Pain, Chronic, Fibromyalgia, Osteoarthritis, Other (See Below) Other Musculoskeletal History: neuropathy in feet Neurological History: Reports: Migraines, Vertigo Psychiatric History: Reports: Depression, Mood Swings Endocrine/Metabolic History: Reports: Diabetes, Type II, Obesity/BMI 30+ Hematologic History: Reports: None - Infectious Disease History Infectious Disease History: Reports: Chicken Pox, Measles, Mumps, Shingles - Past Surgical History HEENT Surgical History: Reports: Oral Surgery Other HEENT Surgeries/Procedures: upper/lower dentures Cardiovascular Surgical History: Reports: None GI Surgical History: Reports: Cholecystectomy Female Surgical History: Reports: Tubal Ligation Endocrine Surgical History: Reports: None Musculoskeletal Surgical History: Reports: None Social & Family History - Tobacco Use Tobacco Use Status *Q: Never Tobacco User Second Hand Smoke Exposure: Yes - Caffeine Use Caffeine Use: Reports: Soda - Alcohol Use Days Per Week of Alcohol Use: 0 - Recreational Drug Use Recreational Drug Use: No ED ROS GENERAL - Review of Systems Review Of Systems: Comprehensive ROS is negative, except as noted in HPI. ED EXAM, GI/ABD - Physical Exam Exam: See Below Exam Limited By: No Limitations General Appearance: Alert, Mild Distress Throat/Mouth: Normal Oropharynx Head: Normocephalic Neck: Supple, Non-Tender, Full Range of Motion Respiratory/Chest: No Respiratory Distress, Lungs Clear, Normal Breath Sounds Cardiovascular: Regular Rate, Rhythm, No JVD GI/Abdominal Exam: Normal Bowel Sounds, Soft, No Organomegaly, No Distention, Tender (Mild tenderness diffusely.) Back Exam: Normal Inspection. No: CVA Tenderness (L), CVA Tenderness (R) Extremities: Normal Inspection, No Pedal Edema Neurological: Alert, Oriented Psychiatric: Normal Mood Skin Exam: Warm, Dry, Normal Color Lymphatic: No Adenopathy Course - Vital Signs Text/Narrative:: Patient's lab work showed a lactic acid of 2.1. Her urine also was positive for +2 ketones and specific gravity of 1.030. Patient is feeling somewhat better with IV fluids and meds. She is still unable to eat or drink in the department so I am admitting her to the hospital for further IV fluids and work-up and treatment. Last Recorded V/S: Last Vital Signs Temp 97.9 F 10/08/20 08:15 Pulse 96 10/08/20 08:15 Resp 14 10/08/20 08:15 BP 128/78 10/08/20 08:15 Pulse Ox 97 10/08/20 08:15 - Orders/Labs/Meds Labs: Laboratory Tests 10/06/20 10/06/20 10/06/20 Range/Units 22:05 22:05 22:05 WBC 10.51 H (3.98-10.04) K/mm3 RBC 4.69 (3.98-5.22) M/mm3 Hgb 14.4 (11.2-15.7) gm/dl Hct 42.6 (34.1-44.9) % MCV 90.8 (79.4-94.8) fl MCH 30.7 (25.6-32.2) pg MCHC 33.8 (32.2-35.5) g/dl RDW Std Deviation 43.1 (36.4-46.3) fL Plt Count 464 H (182-369) K/mm3 MPV 9.5 (9.4-12.3) fl Neut % (Auto) 46.0 (34.0-71.1) % Lymph % (Auto) 41.4 (19.3-51.7) % Harlan % (Auto) 9.4 (4.7-12.5) % Eos % (Auto) 2.2 (0.7-5.8) Baso % (Auto) 0.5 (0.1-1.2) % Neut # (Auto) 4.84 (1.56-6.13) K/mm3 Lymph # (Auto) 4.35 H (1.18-3.74) K/mm3 Harlan # (Auto) 0.99 H (0.24-0.36) K/mm3 Eos # (Auto) 0.23 (0.04-0.36) K/mm3 Baso # (Auto) 0.05 (0.01-0.08) K/mm3 Manual Slide Review Abnormal smear Sodium 141 (136-145) mEq/L Potassium 4.0 (3.5-5.1) mEq/L Chloride 103 (98-107) mEq/L Carbon Dioxide 25 (21-32) mEq/L Anion Gap 17.0 H (5-15) BUN 15 (7-18) mg/dL Creatinine 1.1 H (0.55-1.02) mg/dL Est Cr Clr Drug Dosing 54.10 mL/min Estimated GFR (MDRD) 52 (>60) mL/min BUN/Creatinine Ratio 13.6 L (14-18) Glucose 276 H (70-99) mg/dL Lactic Acid (0.4-2.0) mmol/L Calcium 9.8 (8.5-10.1) mg/dL Total Bilirubin 0.6 (0.2-1.0) mg/dL AST 58 H (15-37) U/L ALT 98 H (14-59) U/L Alkaline Phosphatase 89 (46-116) U/L Total Protein 8.0 (6.4-8.2) g/dl Albumin 4.2 (3.4-5.0) g/dl Globulin 3.8 gm/dL Albumin/Globulin Ratio 1.1 (1-2) Lipase 114 (73-393) U/L Urine Color (Yellow) Urine Appearance (Clear) Urine pH (5.0-8.0) Ur Specific [place] (1.005-1.030) Urine Protein (Negative) Urine Glucose (UA) (Negative) Urine Ketones (Negative) Urine Occult Blood (Negative) Urine Nitrite (Negative) Urine Bilirubin (Negative) Urine Urobilinogen (0.2-1.0) Ur Leukocyte Esterase (Negative) Influenza Type A RNA (NEGATIVE) Influenza Type B RNA (NEGATIVE) SARS-CoV-2 RNA (BRETT) (NEGATIVE) 10/06/20 10/07/20 10/07/20 Range/Units 23:32 01:00 01:11 WBC (3.98-10.04) K/mm3 RBC (3.98-5.22) M/mm3 Hgb (11.2-15.7) gm/dl Hct (34.1-44.9) % MCV (79.4-94.8) fl MCH (25.6-32.2) pg MCHC (32.2-35.5) g/dl RDW Std Deviation (36.4-46.3) fL Plt Count (182-369) K/mm3 MPV (9.4-12.3) fl Neut % (Auto) (34.0-71.1) % Lymph % (Auto) (19.3-51.7) % [place] % (Auto) (4.7-12.5) % Eos % (Auto) (0.7-5.8) Baso % (Auto) (0.1-1.2) % Neut # (Auto) (1.56-6.13) K/mm3 Lymph # (Auto) (1.18-3.74) K/mm3 [place] # (Auto) (0.24-0.36) K/mm3 Eos # (Auto) (0.04-0.36) K/mm3 Baso # (Auto) (0.01-0.08) K/mm3 Manual Slide Review Sodium (136-145) mEq/L Potassium (3.5-5.1) mEq/L Chloride (98-107) mEq/L Carbon Dioxide (21-32) mEq/L Anion Gap (5-15) BUN (7-18) mg/dL Creatinine (0.55-1.02) mg/dL Est Cr Clr Drug Dosing mL/min Estimated GFR (MDRD) (>60) mL/min BUN/Creatinine Ratio (14-18) Glucose (70-99) mg/dL Lactic Acid 2.1 H* (0.4-2.0) mmol/L Calcium (8.5-10.1) mg/dL Total Bilirubin (0.2-1.0) mg/dL AST (15-37) U/L ALT (14-59) U/L Alkaline Phosphatase (46-116) U/L Total Protein (6.4-8.2) g/dl Albumin (3.4-5.0) g/dl Globulin gm/dL Albumin/Globulin Ratio (1-2) Lipase (73-393) U/L Urine Color Yellow (Yellow) Urine Appearance Clear (Clear) Urine pH 5.5 (5.0-8.0) Ur Specific [place] > or = 1.030 (1.005-1.030) Urine Protein 2+ H (Negative) Urine Glucose (UA) 2+ H (Negative) Urine Ketones 2+ H (Negative) Urine Occult Blood Negative (Negative) Urine Nitrite Negative (Negative) Urine Bilirubin 1+ H (Negative) Urine Urobilinogen 0.2 (0.2-1.0) Ur Leukocyte Esterase Negative (Negative) Influenza Type A RNA Negative (NEGATIVE) Influenza Type B RNA Negative (NEGATIVE) SARS-CoV-2 RNA (BRETT) Negative (NEGATIVE) 10/07/20 Range/Units 02:30 WBC (3.98-10.04) K/mm3 RBC (3.98-5.22) M/mm3 Hgb (11.2-15.7) gm/dl Hct (34.1-44.9) % MCV (79.4-94.8) fl MCH (25.6-32.2) pg MCHC (32.2-35.5) g/dl RDW Std Deviation (36.4-46.3) fL Plt Count (182-369) K/mm3 MPV (9.4-12.3) fl Neut % (Auto) (34.0-71.1) % Lymph % (Auto) (19.3-51.7) % [place] % (Auto) (4.7-12.5) % Eos % (Auto) (0.7-5.8) Baso % (Auto) (0.1-1.2) % Neut # (Auto) (1.56-6.13) K/mm3 Lymph # (Auto) (1.18-3.74) K/mm3 [place] # (Auto) (0.24-0.36) K/mm3 Eos # (Auto) (0.04-0.36) K/mm3 Baso # (Auto) (0.01-0.08) K/mm3 Manual Slide Review Sodium (136-145) mEq/L Potassium (3.5-5.1) mEq/L Chloride (98-107) mEq/L Carbon Dioxide (21-32) mEq/L Anion Gap (5-15) BUN (7-18) mg/dL Creatinine (0.55-1.02) mg/dL Est Cr Clr Drug Dosing mL/min Estimated GFR (MDRD) (>60) mL/min BUN/Creatinine Ratio (14-18) Glucose (70-99) mg/dL Lactic Acid 1.8 (0.4-2.0) mmol/L Calcium (8.5-10.1) mg/dL Total Bilirubin (0.2-1.0) mg/dL AST (15-37) U/L ALT (14-59) U/L Alkaline Phosphatase (46-116) U/L Total Protein (6.4-8.2) g/dl Albumin (3.4-5.0) g/dl Globulin gm/dL Albumin/Globulin Ratio (1-2) Lipase (73-393) U/L Urine Color (Yellow) Urine Appearance (Clear) Urine pH (5.0-8.0) Ur Specific [place] (1.005-1.030) Urine Protein (Negative) Urine Glucose (UA) (Negative) Urine Ketones (Negative) Urine Occult Blood (Negative) Urine Nitrite (Negative) Urine Bilirubin (Negative) Urine Urobilinogen (0.2-1.0) Ur Leukocyte Esterase (Negative) Influenza Type A RNA (NEGATIVE) Influenza Type B RNA (NEGATIVE) SARS-CoV-2 RNA (BRETT) (NEGATIVE) Meds: Medications Discontinued Medications Generic Name Dose Route Start Last Admin Trade Name Freq PRN Reason Stop Dose Admin Acetaminophen 650 mg 10/07/20 20:50 Acetaminophen 325 Mg Tab PO Q6H PRN Pain Enoxaparin Sodium 40 mg 10/07/20 09:00 10/08/20 09:39 Enoxaparin 40 Mg/0.4 Ml Syringe SUBCUT 40 mg DAILY UNIQUE Administration Fentanyl Confirm 10/07/20 14:02 Fentanyl 100 Mcg/2 Ml Sdv Administered 10/07/20 14:03 Dose 100 mcg .ROUTE .STK-MED ONE Hydromorphone HCl 1 mg 10/06/20 23:20 10/06/20 23:31 Hydromorphone 1 Mg/Ml Syringe IVPUSH 10/06/20 23:21 1 mg ONETIME ONE Administration Hydromorphone HCl 1 mg 10/07/20 00:19 10/07/20 00:23 Hydromorphone 1 Mg/Ml Syringe IVPUSH 10/07/20 00:20 1 mg ONETIME ONE Administration Hydromorphone HCl 1 mg 10/07/20 02:40 10/07/20 02:45 Hydromorphone 1 Mg/Ml Syringe IVPUSH 10/07/20 02:41 1 mg ONETIME ONE Administration Hydromorphone HCl 1 mg 10/07/20 03:12 10/07/20 18:58 Hydromorphone 1 Mg/Ml Syringe IVPUSH 1 mg Q1H PRN Administration Pain Sodium Chloride 1,000 mls @ 999 mls/hr 10/06/20 22:58 10/06/20 23:04 Normal Saline IV 10/06/20 23:58 999 mls/hr ONETIME ONE Administration Metoprolol Tartrate 5 mg/ 55 mls @ 100 mls/hr 10/06/20 23:22 10/06/20 23:33 Sodium Chloride IV 10/06/20 23:54 100 mls/hr ONETIME ONE Administration Sodium Chloride 1,000 mls @ 1,000 mls/hr 10/07/20 01:07 10/07/20 01:18 Normal Saline IV 10/07/20 02:06 500 mls/hr ONETIME ONE Infusion Sodium Chloride 1,000 mls @ 75 mls/hr 10/07/20 03:15 10/08/20 07:38 Normal Saline IV 75 mls/hr ASDIRECTED UNIQUE Administration Ondansetron HCl 8 mg/ Sodium 54 mls @ 100 mls/hr 10/07/20 03:19 Chloride IV Q8HR PRN Nausea/Vomiting Promethazine HCl 12.5 mg/ 50.5 mls @ 100 mls/hr 10/07/20 11:35 10/07/20 11:49 Sodium Chloride IV 10/07/20 12:05 100 mls/hr ONETIME ONE Administration Promethazine HCl 12.5 mg/ 50.5 mls @ 100 mls/hr 10/07/20 23:00 Sodium Chloride IV Q12H PRN Nausea/Vomiting Lactated Ringer's Confirm 10/07/20 14:02 Ringers, Lactated Administered 10/07/20 14:03 Dose 1,000 mls @ as directed .ROUTE .STK-MED ONE Lidocaine HCl Confirm 10/07/20 14:02 Xylocaine-Mpf 1% Administered 10/07/20 14:03 Dose 4 mls @ as directed .ROUTE .STK-MED ONE Insulin Glargine 15 unit 10/07/20 18:00 10/07/20 18:48 Insulin Glarg,Human.Rec.Analog 100 Unit/Ml SUBCUT 15 units QPM [facility] Administration Insulin Human Lispro 0 unit 10/07/20 13:00 10/07/20 13:04 Insulin Lispro 100 Unit/Ml 10 Ml Vial SUBCUT 1 unit TIDPC [facility] Administration Protocol Insulin Human Lispro 0 unit 10/07/20 15:00 10/08/20 18:38 Insulin Lispro 100 Unit/Ml 10 Ml Vial SUBCUT Not Given TID [facility] Protocol Ketorolac Tromethamine 30 mg 10/06/20 23:20 10/06/20 23:30 Ketorolac 30 Mg/Ml Sdv IVPUSH 10/06/20 23:21 30 mg ONETIME ONE Administration Lorazepam 0.5 mg 10/07/20 20:51 Lorazepam 2 Mg/Ml Sdv IVPUSH Q6H PRN Anxiety Ondansetron HCl 4 mg 10/06/20 22:57 10/06/20 23:04 Ondansetron 4 Mg/2 Ml Sdv IVPUSH 10/06/20 22:58 4 mg ONETIME ONE Administration Ondansetron HCl 4 mg 10/07/20 07:58 10/07/20 08:06 Ondansetron 4 Mg/2 Ml Sdv IVPUSH 10/07/20 07:59 4 mg ONETIME ONE Administration Pantoprazole Sodium 40 mg 10/06/20 23:24 10/06/20 23:39 Pantoprazole 40 Mg Vial IVPUSH 10/06/20 23:25 40 mg ONETIME ONE Administration Propofol Confirm 10/07/20 14:02 Propofol 200 Mg/20 Ml Sdv Administered 10/07/20 14:03 Dose 200 mg .ROUTE .STK-MED ONE Tramadol HCl 50 mg 10/07/20 20:50 Tramadol 50 Mg Tab PO Q6H PRN Pain Departure - Departure Time of Disposition: 23:55 Disposition: Admitted As Inpatient 65 Condition: Fair Clinical Impression: Gastroparesis, Intractable vomiting, Dehydration - Discharge Information *PRESCRIPTION DRUG MONITORING PROGRAM REVIEWED*: Not Applicable *COPY OF PRESCRIPTION DRUG MONITORING REPORT IN PATIENT ANUSHA: Not Applicable Sepsis Event Note (ED) - Evaluation Sepsis Screening Result: No Definite Risk
== END 2020-10-08 13:30 | disposition home or self-care (01) ==
LOC: JD.ED 21:49 → SUPCPDRO 21:49 → JD.MS 10-07 03:03
PROVIDERS: ADMIT Pediatrics; ATTEND Pediatrics
DX: K20.90 Esophagitis, unspecified without bleeding (principal); E11.9 Type 2 diabetes mellitus without complications; E87.2 Acidosis; Z88.8 Allergy status to other drugs, medicaments and biological substances; Z91.040 Latex allergy status; Z91.018 Allergy to other foods; Z79.899 Other long term (current) drug therapy; Z79.84 Long term (current) use of oral hypoglycemic drugs; M79.7 Fibromyalgia; Z01.812 Encounter for preprocedural laboratory examination; Z20.822 Contact with and (suspected) exposure to COVID-19
CPT/HCPCS: 0240U; 36415; 43239; 74177; 74181; 80053; 81001; 81003; 82009; 82150; 82306; 82947; 83036; 83605; 83690; 83735; 85025; 86140; 87086; 87088; 87186; 93005; 94761; 97162; C9113; J1170; J1650; J1815; J1885; J2405; J2550; J2704; J3010; J3490; J7030; J7120; 00731; 99217

== ENCOUNTER 2020-10-31 09:22 | Emergency (ER) | payer MEDICAID ==
[2020-10-31] MEDS ORDERED: Ondansetron 4 MG/2 ML SDV IVPUSH ONE (09:51)
[2020-10-31] MEDS ORDERED: HYDROmorphone 1 MG/ML Syringe IVPUSH ONE (09:52)
[2020-10-31] MEDS ORDERED: Sodium Chloride 0.9% 1,000 ML IV SCH (10:00)
[2020-10-31] MEDS: Sodium Chloride 0.9% 10 ML Syringe FLUSH PRN ×2 (10:28→11:59)
[2020-10-31] MEDS ORDERED: Iopamidol 612 MG/ML 100 ML Bottle IVPUSH ONE (10:35)
[2020-10-31] MEDS ORDERED: Iopamidol 612 MG/ML 50 ML SDV IVPUSH ONE (10:35)
[2020-10-31] MEDS ORDERED: Diatrizoate Meglumine/Diatrizoate Sodium 37% 120 ML Bottle PO ONE (10:36)
--- NOTE | 2020-10-31 11:06 | CR ---
Chest: Portable view of the chest was obtained. Comparison: No prior chest imaging is available. Heart size and mediastinum are within normal limits for portable technique. Lungs are clear with no acute parenchymal change. No acute osseous abnormality is appreciated. Impression: 1. Nothing acute is appreciated on portable chest x-ray. Diagnostic code #1
--- NOTE | 2020-10-31 11:08 | EDM.PDOC ---
ED HPI GENERAL MEDICAL PROBLEM - General Chief Complaint: Abdominal Pain Stated Complaint: ABDOMINAL PAIN AND VOMITING Time Seen by Provider: 10/31/20 09:29 Source of Information: Reports: Patient History Limitations: Reports: No Limitations - History of Present Illness INITIAL COMMENTS - FREE TEXT/NARRATIVE: The patient presents with a headache, abdominal pain, nausea, vomiting and body aches. This started a few days ago. She was here earlier in the month for abdominal pain. She has no fever, chills, cough, congestion, runny nose, chest pain or shortness of breath. She does have a history of fibromyalgia and she was on medications. She was able to come off of those medications. She has no diarrhea or dysuria. Onset: Gradual Duration: Day(s): Location: Reports: Head, Abdomen Quality: Reports: Sharp Severity: Severe Improves with: Reports: None Worsens with: Reports: None Associated Symptoms: Reports: Headaches, Nausea/Vomiting. Denies: Chest Pain, Cough, Fever/Chills, Shortness of Breath Headache Pain Score (Numeric/FACES): 9 - Related Data Allergies Allergy/AdvReac Type Severity Reaction Status Date / Time gluten Allergy Intermediate Blisters Verified 10/31/20 09:36 latex Allergy Intermediate Blisters Verified 10/31/20 09:36 miconazole [From Monistat 7] Allergy Intermediate Rash Verified 10/31/20 09:36 oats Allergy Intermediate Blisters Verified 10/31/20 09:36 ciprofloxacin [From Cipro] Allergy Unknown Other Verified 10/31/20 09:36 Home Meds: Home Meds DULoxetine [Cymbalta] 60 mg PO BID 10/06/20 [History] Dicyclomine [Bentyl] 20 mg PO QIDACANDBED PRN 10/06/20 [History] Metoprolol Succinate 25 mg PO BEDTIME 10/06/20 [History] Ondansetron [Zofran] 4 mg PO Q4H PRN 10/06/20 [History] buPROPion [buPROPion XL] 150 mg PO BID 10/06/20 [History] metFORMIN [Glucophage] 500 mg PO BIDMEALS 10/06/20 [History] Acetaminophen 1,000 mg PO QID PRN 10/07/20 [History] diphenhydrAMINE HCL [Diphenhydramine HCl] 25 mg PO DAILY PRN 10/07/20 [History] traMADol HCl [Tramadol HCl] 50 mg PO BID PRN 10/07/20 [History] Metoclopramide [Reglan] 5 mg PO QIDACANDBED #120 tab 10/08/20 [Rx] Hydrocodone/Acetaminophen [Hydrocodone-Acetamin 5-325 mg] 1 - 2 each PO Q6H PRN #15 tablet 10/31/20 [Rx] Ondansetron [Zofran ODT] 4 mg PO Q6H PRN #20 tab.dis 10/31/20 [Rx] Past Medical History HEENT History: Reports: Impaired Vision Cardiovascular History: Reports: Hypertension Other Respiratory History: pt states she did sleep apnea study and they never for sure stated that she had sleep apnea but states that her o2 does "drop a little when she sleeps" Gastrointestinal History: Reports: Celiac Disease, Diverticulosis, Fatty Liver, GERD, Irritable Bowel Syndrome, Other (See Below) Other Gastrointestinal History: spastic colon [employer] History: Reports: Musculoskeletal History: Reports: Back Pain, Chronic, Fibromyalgia, Osteoarthritis, Other (See Below) Other Musculoskeletal History: neuropathy in feet Neurological History: Reports: Migraines, Vertigo Psychiatric History: Reports: Depression, Mood Swings Endocrine/Metabolic History: Reports: Diabetes, Type II, Obesity/BMI 30+ Hematologic History: Reports: None - Infectious Disease History Infectious Disease History: Reports: Chicken Pox, Measles, Mumps, Shingles - Past Surgical History HEENT Surgical History: Reports: Oral Surgery Other HEENT Surgeries/Procedures: upper/lower dentures Cardiovascular Surgical History: Reports: None GI Surgical History: Reports: Cholecystectomy Female Surgical History: Reports: Tubal Ligation Endocrine Surgical History: Reports: None Musculoskeletal Surgical History: Reports: None Social & Family History - Tobacco Use Tobacco Use Status *Q: Never Tobacco User Second Hand Smoke Exposure: No - Caffeine Use Caffeine Use: Reports: Soda - Recreational Drug Use Recreational Drug Use: No ED ROS GENERAL - Review of Systems Review Of Systems: See Below Constitutional: Reports: No Symptoms HEENT: Reports: No Symptoms Respiratory: Reports: No Symptoms Cardiovascular: Reports: No Symptoms Endocrine: Reports: No Symptoms GI/Abdominal: Reports: Abdominal Pain, Nausea, Vomiting : Reports: No Symptoms Musculoskeletal: Reports: Muscle Pain ED EXAM, GI/ABD - Physical Exam Exam: See Below Exam Limited By: No Limitations General Appearance: Alert, No Apparent Distress Ears: Normal External Exam Nose: Normal Inspection Head: Atraumatic, Normocephalic Neck: Normal Inspection Respiratory/Chest: No Respiratory Distress, Lungs Clear, Normal Breath Sounds Cardiovascular: Regular Rate, Rhythm, No Edema, No Murmur GI/Abdominal Exam: Soft, No Organomegaly, No Mass, Tender (Moderate generalized abdominal pain) Course - Vital Signs Last Recorded V/S: Last Vital Signs Temp 97.0 F 10/31/20 09:34 Pulse 89 10/31/20 09:34 Resp 22 H 10/31/20 09:34 BP 144/85 H 10/31/20 09:34 Pulse Ox 100 10/31/20 09:34 - Orders/Labs/Meds Orders: Active Orders 24 hr Category Date Time Status Cardiac Monitoring [RC] . DIRECTED Care 10/31/20 09:51 Active Peripheral IV Care [RC] . DIRECTED Care 10/31/20 09:52 Active BLOOD CULTURE [MREF] Stat Lab 10/31/20 10:14 Received BLOOD CULTURE [MREF] Stat Lab 10/31/20 10:24 Received Sodium Chloride 0.9% [Normal Saline] 1,000 ml Med 10/31/20 10:00 Active IV .BOLUS Sodium Chloride 0.9% [Saline Flush] Med 10/31/20 09:51 Active 10 ml FLUSH ASDIRECTED PRN Blood Culture x2 Reflex Set [OM.PC] Stat Oth 10/31/20 09:55 Ordered ED Antiemetic Medication Reflex [OM.PC] Stat Oth 10/31/20 09:51 Ordered Peripheral IV Insertion Adult [OM.PC] Stat Oth 10/31/20 09:51 Ordered Medication Orders Sodium Chloride (Normal Saline) 1,000 mls @ 1,000 mls/hr IV .BOLUS UNIQUE Last Admin: 10/31/20 10:29 Dose: 1,000 mls/hr Documented by: ORALIA Sodium Chloride (Sodium Chloride 0.9% 10 Ml Syringe) 10 ml FLUSH ASDIRECTED PRN PRN Reason: Keep Vein Open Last Admin: 10/31/20 11:59 Dose: 10 ml Documented by: Admin: 10/31/20 10:28 Dose: 10 ml Documented by: ORALIA Labs: Laboratory Tests 10/31/20 10/31/20 10/31/20 Range/Units 09:38 09:38 09:38 WBC 7.29 (3.98-10.04) K/mm3 RBC 4.60 (3.98-5.22) M/mm3 Hgb 13.9 (11.2-15.7) gm/dl Hct 42.2 (34.1-44.9) % MCV 91.7 (79.4-94.8) fl MCH 30.2 (25.6-32.2) pg MCHC 32.9 (32.2-35.5) g/dl RDW Std Deviation 43.7 (36.4-46.3) fL Plt Count 408 H (182-369) K/mm3 MPV 9.6 (9.4-12.3) fl Neut % (Auto) 58.4 (34.0-71.1) % Lymph % (Auto) 30.6 (19.3-51.7) % [place] % (Auto) 8.9 (4.7-12.5) % Eos % (Auto) 1.4 (0.7-5.8) Baso % (Auto) 0.4 (0.1-1.2) % Neut # (Auto) 4.26 (1.56-6.13) K/mm3 Lymph # (Auto) 2.23 (1.18-3.74) K/mm3 [place] # (Auto) 0.65 H (0.24-0.36) K/mm3 Eos # (Auto) 0.10 (0.04-0.36) K/mm3 Baso # (Auto) 0.03 (0.01-0.08) K/mm3 PT 10.4 (9.7-12.0) SECONDS INR 0.97 APTT 25.7 (21.7-31.4) SECONDS Sodium 143 (136-145) mEq/L Potassium 3.6 (3.5-5.1) mEq/L Chloride 104 (98-107) mEq/L Carbon Dioxide 32 (21-32) mEq/L Anion Gap 10.6 (5-15) BUN 8 (7-18) mg/dL Creatinine 1.0 (0.55-1.02) mg/dL Est Cr Clr Drug Dosing 59.51 mL/min Estimated GFR (MDRD) 58 (>60) mL/min BUN/Creatinine Ratio 8.0 L (14-18) Glucose 217 H (70-99) mg/dL Lactic Acid (0.4-2.0) mmol/L Calcium 9.3 (8.5-10.1) mg/dL Total Bilirubin 0.7 (0.2-1.0) mg/dL AST 75 H (15-37) U/L ALT 100 H (14-59) U/L Alkaline Phosphatase 78 (46-116) U/L C-Reactive Protein 0.6 (<1.0) mg/dL Total Protein 7.3 (6.4-8.2) g/dl Albumin 3.9 (3.4-5.0) g/dl Globulin 3.4 gm/dL Albumin/Globulin Ratio 1.2 (1-2) Lipase 56 L (73-393) U/L Urine Color (Yellow) Urine Appearance (Clear) Urine pH (5.0-8.0) Ur Specific [place] (1.005-1.030) Urine Protein (Negative) Urine Glucose (UA) (Negative) Urine Ketones (Negative) Urine Occult Blood (Negative) Urine Nitrite (Negative) Urine Bilirubin (Negative) Urine Urobilinogen (0.2-1.0) Ur Leukocyte Esterase (Negative) Urine RBC (0-5) /hpf Urine WBC (0-5) /hpf Ur Squamous Epith Cells (0-5) /hpf Amorphous Sediment (NOT SEEN) /hpf Urine Bacteria (FEW) /hpf Urine Mucus (FEW) /hpf SARS-CoV-2 RNA (BRETT) (NEGATIVE) 10/31/20 10/31/20 10/31/20 Range/Units 09:38 10:24 10:35 WBC (3.98-10.04) K/mm3 RBC (3.98-5.22) M/mm3 Hgb (11.2-15.7) gm/dl Hct (34.1-44.9) % MCV (79.4-94.8) fl MCH (25.6-32.2) pg MCHC (32.2-35.5) g/dl RDW Std Deviation (36.4-46.3) fL Plt Count (182-369) K/mm3 MPV (9.4-12.3) fl Neut % (Auto) (34.0-71.1) % Lymph % (Auto) (19.3-51.7) % [place] % (Auto) (4.7-12.5) % Eos % (Auto) (0.7-5.8) Baso % (Auto) (0.1-1.2) % Neut # (Auto) (1.56-6.13) K/mm3 Lymph # (Auto) (1.18-3.74) K/mm3 [place] # (Auto) (0.24-0.36) K/mm3 Eos # (Auto) (0.04-0.36) K/mm3 Baso # (Auto) (0.01-0.08) K/mm3 PT (9.7-12.0) SECONDS INR APTT (21.7-31.4) SECONDS Sodium (136-145) mEq/L Potassium (3.5-5.1) mEq/L Chloride (98-107) mEq/L Carbon Dioxide (21-32) mEq/L Anion Gap (5-15) BUN (7-18) mg/dL Creatinine (0.55-1.02) mg/dL Est Cr Clr Drug Dosing mL/min Estimated GFR (MDRD) (>60) mL/min BUN/Creatinine Ratio (14-18) Glucose (70-99) mg/dL Lactic Acid 1.7 (0.4-2.0) mmol/L Calcium (8.5-10.1) mg/dL Total Bilirubin (0.2-1.0) mg/dL AST (15-37) U/L ALT (14-59) U/L Alkaline Phosphatase (46-116) U/L C-Reactive Protein (<1.0) mg/dL Total Protein (6.4-8.2) g/dl Albumin (3.4-5.0) g/dl Globulin gm/dL Albumin/Globulin Ratio (1-2) Lipase (73-393) U/L Urine Color Yellow (Yellow) Urine Appearance Slt cloudy H (Clear) Urine pH 7.5 (5.0-8.0) Ur Specific [place] 1.020 (1.005-1.030) Urine Protein Trace H (Negative) Urine Glucose (UA) Negative (Negative) Urine Ketones Trace H (Negative) Urine Occult Blood Negative (Negative) Urine Nitrite Negative (Negative) Urine Bilirubin Negative (Negative) Urine Urobilinogen 0.2 (0.2-1.0) Ur Leukocyte Esterase Negative (Negative) Urine RBC Not seen (0-5) /hpf Urine WBC 0-5 (0-5) /hpf Ur Squamous Epith Cells 0-5 (0-5) /hpf Amorphous Sediment Moderate H (NOT SEEN) /hpf Urine Bacteria Few (FEW) /hpf Urine Mucus Few (FEW) /hpf SARS-CoV-2 RNA (BRETT) Negative (NEGATIVE) Meds: Medications Generic Name Dose Route Start Last Admin Trade Name Freq PRN Reason Stop Dose Admin Sodium Chloride 1,000 mls @ 1,000 mls/hr 10/31/20 10:00 10/31/20 10:29 Normal Saline IV 1,000 mls/hr .BOLUS UNIQUE Administration Sodium Chloride 10 ml 10/31/20 09:51 10/31/20 11:59 Sodium Chloride 0.9% 10 Ml Syringe FLUSH 10 ml ASDIRECTED PRN Administration Keep Vein Open Discontinued Medications Generic Name Dose Route Start Last Admin Trade Name Freq PRN Reason Stop Dose Admin Diatrizoate Meglum/Diatrizoate Sod 120 ml 10/31/20 10:36 10/31/20 11:58 Diatrizoate Meglumine/Diatrizoate Sodium 37% 120 Ml Bottle PO 10/31/20 10:37 45 ml ONETIME ONE Administration Hydromorphone HCl 1 mg 10/31/20 09:52 10/31/20 10:26 Hydromorphone 1 Mg/Ml Syringe IVPUSH 10/31/20 09:53 1 mg ONETIME ONE Administration Hydromorphone HCl 0.25 mg 10/31/20 13:12 Hydromorphone 0.5 Mg/0.5 Ml Syringe IVPUSH 10/31/20 13:13 ONETIME ONE Iopamidol 100 ml 10/31/20 10:35 10/31/20 11:58 Iopamidol 612 Mg/Ml 100 Ml Bottle IVPUSH 10/31/20 10:36 100 ml ONETIME ONE Administration Metoclopramide HCl 10 mg 10/31/20 11:17 10/31/20 12:05 Metoclopramide 10 Mg/2 Ml Sdv IVPUSH 10/31/20 11:18 10 mg ONETIME ONE Administration Ondansetron HCl 4 mg 10/31/20 09:51 10/31/20 10:26 Ondansetron 4 Mg/2 Ml Sdv IVPUSH 10/31/20 09:52 4 mg ONETIME ONE Administration - Re-Assessments/Exams Free Text/Narrative Re-Assessment/Exam: 10/31/20 11:13 I ordered an IV NS 1L bolus, zofran 4mg IV, dilaudid 1mg IV, labs, UA and a CT of her head, abdomen and pelvis. 10/31/20 11:15 Her CBC looks good. Her glucose is elevated at 217. Her AST is elevated at 75. Her ALT is elevated at 100. Her lipase is low. Her UA shows no UTI. She is COVID negative. Her oxygen saturations went down with the dilaudid. I put her on some oxygen. 10/31/20 13:13 Her CXR looks good. The CT of her head shows nothing acute. The CT of her abdomen and pelvis shows small cyst within the tail of the pancreas which remains stable. Minimal atelectasis within the right lung base. Fatty infiltration within the liver. Diffuse diverticulosis. Gastroesophageal reflux of contrast into the esophagus. Nothing acute is appreciated on CT study of the abdomen and pelvis. Other findings believed to be old. She feels a little better. She still has a headache. I have ordered dilaudid 0.25mg IV. Departure - Departure Time of Disposition: 13:20 Disposition: Home, Self-Care 01 Condition: Good Clinical Impression: Migraine Qualifiers: Migraine type: other Status migrainosus presence: without status migrainosus Intractability: not intractable Qualified Code(s): G43.809 - Other migraine, not intractable, without status migrainosus Abdominal pain Qualifiers: Abdominal location: epigastric Qualified Code(s): R10.13 - Epigastric pain - Discharge Information *PRESCRIPTION DRUG MONITORING PROGRAM REVIEWED*: Not Applicable *COPY OF PRESCRIPTION DRUG MONITORING REPORT IN PATIENT ANUSHA: Not Applicable Prescriptions: Hydrocodone/Acetaminophen [Hydrocodone-Acetamin 5-325 mg] 1 - 2 each PO Q6H PRN #15 tablet PRN Reason: Pain Ondansetron [Zofran ODT] 4 mg PO Q6H PRN #20 tab.dis PRN Reason: Nausea\\vomiting Referrals: Michael Easton MD [Primary Care Provider] - 1 Week Forms: ED Department Discharge Additional Instructions: Drink plenty of fluids. Take the zofran as needed for nausea and vomiting. Take tylenol or motrin as needed for pain. If that does not help, try the hydrocodone. Follow up with your doctor within a week. Please return if you are worse. Sepsis Event Note (ED) - Evaluation Sepsis Screening Result: No Definite Risk - Focused Exam Vital Signs: Vital Signs Temp Pulse Resp BP Pulse Ox 10/31/20 09:34 97.0 F 89 22 H 144/85 H 100 - My Orders Last 24 Hours: My Active Orders 10/31/20 09:51 Cardiac Monitoring [RC] . DIRECTED Sodium Chloride 0.9% [Saline Flush] 10 ml FLUSH ASDIRECTED PRN ED Antiemetic Medication Reflex [OM.PC] Stat Peripheral IV Insertion Adult [OM.PC] Stat 10/31/20 09:52 Peripheral IV Care [RC] . DIRECTED 10/31/20 09:55 Blood Culture x2 Reflex Set [OM.PC] Stat 10/31/20 10:00 Sodium Chloride 0.9% [Normal Saline] 1,000 ml IV .BOLUS 10/31/20 10:14 BLOOD CULTURE [MREF] Stat 10/31/20 10:24 BLOOD CULTURE [MREF] Stat - Assessment/Plan Last 24 Hours: My Active Orders 10/31/20 09:51 Cardiac Monitoring [RC] . DIRECTED Sodium Chloride 0.9% [Saline Flush] 10 ml FLUSH ASDIRECTED PRN ED Antiemetic Medication Reflex [OM.PC] Stat Peripheral IV Insertion Adult [OM.PC] Stat 10/31/20 09:52 Peripheral IV Care [RC] . DIRECTED 10/31/20 09:55 Blood Culture x2 Reflex Set [OM.PC] Stat 10/31/20 10:00 Sodium Chloride 0.9% [Normal Saline] 1,000 ml IV .BOLUS 10/31/20 10:14 BLOOD CULTURE [MREF] Stat 10/31/20 10:24 BLOOD CULTURE [MREF] Stat
[2020-10-31] MEDS ORDERED: Metoclopramide 10 MG/2 ML SDV IVPUSH ONE (11:17)
--- NOTE | 2020-10-31 12:36 | CT ---
Head CT Technique: Multiple axial sections through the brain were obtained. Intravenous contrast was not utilized. Reconstructed coronal and sagittal images were obtained. Comparison: No prior intracranial imaging is available. Findings: Ventricles along with basal cisterns and sulci over the convexities are within normal limits for the patient's age. No abnormal parenchymal densities are seen. No evidence of intracranial hemorrhage is seen. No midline shift or mass-effect is seen. Bone window settings were reviewed. Visualized mastoid sinuses and paranasal sinuses show nothing acute. No acute calvarial abnormality is appreciated. Impression: 1. Nothing acute is identified on noncontrast head CT study. Diagnostic code #1
--- NOTE | 2020-10-31 12:39 | CT ---
CT abdomen and pelvis Technique: Multiple axial sections were obtained from above the dome of the diaphragm inferiorly through the pubic symphysis. Intravenous contrast was utilized. Delayed images were obtained through the bladder. Reconstructed coronal and sagittal images were obtained. Comparison: Prior CT abdomen and pelvis study of 10/07/20. Findings: Small portion of the visualized lung bases show minimal atelectasis within the right lung base. Diffuse fatty infiltration is noted within the liver. Surgical clips are seen from prior cholecystectomy. Biliary ducts are stable in size and unremarkable. Spleen size is normal. There is mild gastroesophageal reflux of contrast seen within the distal esophagus. Adrenal glands show no nodule. Pancreas shows a small abnormality within the tail measuring about 9 mm. This is believed to be stable from prior exam. Kidneys show symmetric contrast enhancement. No hydronephrosis or mass is seen. Abdominal aorta shows no aneurysm. No retroperitoneal adenopathy or mesenteric abnormalities are seen. Appendix is seen which is normal. Diffuse diverticuli are seen within the descending and sigmoid regions of the colon. No inflammatory change is seen to indicate diverticulitis. No pelvic mass or adenopathy is seen. Delayed images show contrast within the distal ureters and within the bladder. Bone window settings were reviewed which show disc space narrowing and vacuum phenomena within the L5-S1 disc. Impression: 1. Small cyst within the tail of the pancreas which remains stable. 2. Minimal atelectasis within the right lung base. Fatty infiltration within the liver. 3. Diffuse diverticulosis. 4. Gastroesophageal reflux of contrast into the esophagus. 5. Nothing acute is appreciated on CT study of the abdomen and pelvis. Other findings believed to be old as noted above. Diagnostic code #3
[2020-10-31] MEDS ORDERED: HYDROmorphone 0.5 MG/0.5 ML Syringe IVPUSH ONE (13:12)
== END 2020-10-31 13:37 | disposition home or self-care (01) ==
LOC: JD.ED 09:22
DX: G43.809 Other migraine, not intractable, without status migrainosus (principal); R10.13 Epigastric pain; E11.9 Type 2 diabetes mellitus without complications; I10 Essential (primary) hypertension; Z91.018 Allergy to other foods; Z91.048 Other nonmedicinal substance allergy status; Z88.1 Allergy status to other antibiotic agents; Z91.09 Other allergy status, other than to drugs and biological substances; Z20.822 Contact with and (suspected) exposure to COVID-19; Z79.84 Long term (current) use of oral hypoglycemic drugs
CPT/HCPCS: 36415; 70450; 71045; 74177; 80053; 81001; 83605; 83690; 85025; 85610; 85730; 86140; 87040; 87635; 96374; 96375; 96376; 99284; J1170; J2405; J2765; J7030; Q9963; Q9967; U0002